=== PATIENT | male | born 1960 ===

== ENCOUNTER → 2023-01-14 | Day surgery (SDC) | payer MEDICARE, OTHER ==
[~2023-01-14] VITALS: Ht 180.3 cm; Wt 140.9 kg
[~2023-01-14] MED LIST: LIDOCAINE 1% INJ 10 ML VIAL INJ ONE
--- NOTE | 2023-01-14 15:01 | Diagnostic Imaging Report ---
INDICATION: Enlarged left neck lymph nodes. Patient presents for ultrasound-guided core biopsy. PROCEDURE: Patient was brought to the procedure room and placed on table in the supine position. Ultrasound imaging of the left neck was performed to evaluate appropriate entry site. Left neck was prepped and draped in the usual sterile fashion. Small amount of 1% lidocaine was utilized for local anesthesia. A total of 4 core biopsies were obtained of the dominant lymph node in the left submandibular region utilizing an 18-gauge [place] needle. Hemostasis was obtained. Patient tolerated the procedure well and left the department in stable condition. IMPRESSION: Successful ultrasound-guided core biopsy of the dominant lymph node in the left neck and left submandibular region. Pathology results are currently pending. Dictated by: Dictated on workstation # [id number]
== END ==
LOC: RAD 12:37
PROVIDERS: ATTEND Otolaryngology Otolaryngology/Facial Plastic Surgery
DX: C82.11 Follicular lymphoma grade II, lymph nodes of head, face, and neck (principal)
CPT/HCPCS: 76942; 88307; 88341; 88342; 88360

== ENCOUNTER → 2023-03-18 | Outpatient (CLI) | payer MEDICARE, OTHER | LOC: WOUNDCARE 10:12 | PROVIDERS: ATTEND Family Medicine | DX: K08.59 Other unsatisfactory restoration of tooth (principal); S02.5XXG Fracture of tooth (traumatic), subsequent encounter for fracture with delayed healing; K02.53 Dental caries on pit and fissure surface penetrating into pulp; R68.2 Dry mouth, unspecified; K12.33 Oral mucositis (ulcerative) due to radiation; R13.19 Other dysphagia; W88.8XXA Exposure to other ionizing radiation, initial encounter | CPT/HCPCS: 99213 ==

== ENCOUNTER → 2023-04-26 | Outpatient (CLI) | payer MEDICARE, OTHER | LOC: WOUNDCARE 14:11 | PROVIDERS: ATTEND Family Medicine | DX: K08.50 Unsatisfactory restoration of tooth, unspecified (principal); S02.5XXG Fracture of tooth (traumatic), subsequent encounter for fracture with delayed healing; K02.53 Dental caries on pit and fissure surface penetrating into pulp; R68.2 Dry mouth, unspecified; K12.33 Oral mucositis (ulcerative) due to radiation; R13.19 Other dysphagia; W88.8XXA Exposure to other ionizing radiation, initial encounter; M87.38 Other secondary osteonecrosis, other site; I96 Gangrene, not elsewhere classified | CPT/HCPCS: 99212 ==

== ENCOUNTER → 2023-05-25 | Outpatient (CLI) | payer MEDICARE, OTHER | LOC: WOUNDCARE 07:59 | PROVIDERS: ATTEND Family Medicine | DX: K08.50 Unsatisfactory restoration of tooth, unspecified (principal); S02.5XXG Fracture of tooth (traumatic), subsequent encounter for fracture with delayed healing; K02.53 Dental caries on pit and fissure surface penetrating into pulp; R68.2 Dry mouth, unspecified; K12.33 Oral mucositis (ulcerative) due to radiation; R13.19 Other dysphagia; W88.8XXA Exposure to other ionizing radiation, initial encounter; M87.38 Other secondary osteonecrosis, other site; I96 Gangrene, not elsewhere classified | CPT/HCPCS: 99212 ==

== ENCOUNTER → 2023-05-27 | Outpatient (RCR) | payer MEDICARE, OTHER | END | disposition home or self-care (01) | LOC: WOUNDCARE 05-11 07:55 | PROVIDERS: ATTEND Family Medicine | DX: M87.9 Osteonecrosis, unspecified (principal) | CPT/HCPCS: 99183 ==